=== PATIENT | female | born 1955 | race Caucasian/White ===

== ENCOUNTER 2023-07-26 01:02 | Emergency (ER) | payer OTHER, MEDICAID ==
[~2023-07-26] VITALS: Ht 162.6 cm; Wt 120.0 kg
[2023-07-26 01:06] VITALS: O2SAT 100
[2023-07-26] MEDS: KETOROLAC 30MG/ML VIAL IV STA (02:36)
[2023-07-26 02:45] LABS: BASOPHILS % 0.9 % (0.0-2.0); EOSINOPHILS % 2.8 % (0.0-5.0); HEMATOCRIT. 35.6 % (36.0-48.0); HEMOGLOBIN. 11.9 g/dL (12.0-16.0); LYMPHOCYTES % 28.7 % (20.0-50.0); MEAN CORPUSCULAR HEMOGLOBIN 27.2 pg (28.0-32.0); MEAN CORPUSCULAR HGB CONC 33.4 g/dL (31.0-37.0); MEAN CORPUSCULAR VOLUME 81.4 fL (81.0-99.0); MEAN PLATELET VOLUME 8.9 fl (7.4-10.4); MONOCYTES % 9.2 % (2.0-8.0); NEUTROPHILS % 58.4 % (40.0-76.0); PLATELET 241 x1000/uL (130-400); RED BLOOD CELL COUNT 4.38 mill/uL (4.2-5.4); RED CELL DISTRIBUTION WIDTH 15.3 % (11.6-14.6); WHITE BLOOD COUNT 6.7 x1000/uL (4.5-11.0)
[2023-07-26 02:54] LABS: PROTHROMBIN TIME 10.9 sec (9.6-11.0)
[2023-07-26 02:59] LABS: CHLORIDE 108 mEq/L (98-107); POTASSIUM 3.2 mEq/L (3.5-5.1); SODIUM 142 mEq/L (136-145)
[2023-07-26 03:00] LABS: CALCIUM 9.2 mg/dL (8.7-10.4); CARBON DIOXIDE 29 mEq/L (21-32)
[2023-07-26 03:05] LABS: CREATININE 0.7 mg/dL (0.6-1.0); GLUCOSE 103 mg/dL (70-105); UREA NITROGEN BLOOD 10 mg/dL (9-23)
[2023-07-26 03:06] LABS: TROPONIN I HIGH SENSITIVITY 4 ng/L (3.0-34)
[2023-07-26 03:07] LABS: ALANINE AMINOTRANSFERASE 20 IU/L (10-49); ASPARTATE AMINOTRANSFERASE 29 IU/L (<34)
[2023-07-26 03:08] LABS: BILIRUBIN TOTAL 0.7 mg/dL (0.1-1.0); PROTEIN TOTAL 6.9 g/dL (6.0-8.3)
[2023-07-26] MEDS ORDERED: POLY17PO3 MT (04:08)
[2023-07-26] MEDS ORDERED: SENN-257 MT (04:08)
[2023-07-26] MEDS: POTASSIUM CHLORIDE 20MEQ TABLET SR PO ONE (04:20)
[2023-07-26 05:00] VITALS: BP 132/71; PULSE 57; RESP 18; TEMP 97.8
[2023-07-26] MEDS: KETOROLAC 60MG/2ML VIAL IM ONE (05:37)
== END 2023-07-26 05:45 | disposition home or self-care (01) ==
LOC: ER 01:02
DX: K21.9 Gastro-esophageal reflux disease without esophagitis (principal); E78.00 Pure hypercholesterolemia, unspecified; I10 Essential (primary) hypertension; Z88.6 Allergy status to analgesic agent; Z88.5 Allergy status to narcotic agent
CPT/HCPCS: 99285; 74176; 96374; 71045; 80053; 83690; 85025; 85610; 84484; 36415; 96372; J1885 ×2